=== PATIENT | male | born 1965 | race Two or more races ===

== ENCOUNTER 2018-06-28 13:37 | Emergency (ER) | payer SELFPAY ==
[~2018-06-28] VITALS: Ht 162.6 cm; Wt 68.0 kg
[2018-06-28 14:10] VITALS: BP 103/70
[2018-06-28] MEDS ORDERED: TETANUS-DIPTH-ACEL PERTUSSIS 0.5ML SYRG IM ONE (14:15)
== END 2018-06-28 14:54 | disposition left against medical advice (07) ==
LOC: EDBD 13:37 → ER 13:40
DX: S09.93XA Unspecified injury of face, initial encounter (principal); V18.0XXA Pedal cycle driver injured in noncollision transport accident in nontraffic accident, initial encounter; Y93.89 Activity, other specified; Y99.8 Other external cause status; Y92.89 Other specified places as the place of occurrence of the external cause